=== PATIENT | female | born 1935 | race Caucasian/White ===

== ENCOUNTER 2018-07-22 15:59 | Emergency (ER) | payer MEDICARE, OTHER ==
[2018-07-22] MEDS ORDERED: Adacel (T-DAP) 0.5 ML SYRINGE ONE (17:00)
--- NOTE | 2018-07-22 17:02 | RAD ---
CHEST 2 VIEWS: Date: 07/22/18 HISTORY: Pain, fall. COMPARISON: Chest radiograph from 2016. FINDINGS: There is a faint density projecting over the right upper lobe. This is new from the comparison examin ation. No pneumothorax or effusion. Cardiac silhouette and mediastinal contours within normal limits. IMPRESSION: Nodular density projecting over the right upper lobe. Nonemergent follow-up CT of the chest recommend ed. CODE T. CODE LN. POS: [facility]
--- NOTE | 2018-07-22 17:21 | CT ---
HEAD CT WITHOUT CONTRAST: Date: 07/22/18 HISTORY: Fall, trauma, pain. TECHNIQUE: Axial CT imaging at 5 mm intervals from vertex through skull base without contrast. Coronal and sagit lizet reformatted imaging obtained. FINDINGS: The maxillary sinus, frontal sinus, and anterior ethmoid air cells are completely opacified on the ri ght. There is atherosclerotic calcification of the cavernous carotid arteries. There is no displaced calvarial fracture. There is extensive periventricular, deep, and subcortical white matter hypodensit y, evidence of prominent small vessel disease. No intracranial hemorrhage, midline shift, or mass eff ect. IMPRESSION: Paranasal sinus disease on the right. Extensive small vessel disease. No intracranial hemorrhage or d isplaced calvarial fracture. POS: [facility]
== END 2018-07-22 17:20 | disposition home or self-care (01) ==
LOC: MADERS 15:59
DX: S00.531A Contusion of lip, initial encounter (principal); S50.811A Abrasion of right forearm, initial encounter; Z79.899 Other long term (current) drug therapy; Z79.82 Long term (current) use of aspirin; W19.XXXA Unspecified fall, initial encounter
CPT/HCPCS: 70450; 71046; 90471; 90715

== ENCOUNTER 2018-11-09 11:34 | Emergency (ER) | payer MEDICARE, OTHER ==
[2018-11-09 12:12] LABS: #Basophils 0.1 thou/uL (0.0-0.2); #Eosinphils 0.1 thou/uL (0.0-0.7); #Lymphocytes 1.8 thou/uL (1.20-3.40); #Monocytes 0.6 thou/uL (0.11-0.59); #Neutrophils 8.2 thou/uL (1.40-6.50); %Basophils 0.7 % (0.0-1.0); %Eosinophils 1.1 % (0.0-10.0); %Lymphocytes 16.2 % (21.0-51.0); %Monocytes 5.9 % (0.0-10.0); %Neutrophils 76.1 % (42.0-75.0); Hemoglobin 12.7 g/dL (12.0-16.0); Mean Corpuscular HGB CONC 32.6 g/dL (32.0-36.0); Mean Corpuscular Hemoglobin 29.9 pg (27.0-31.0); Mean Corpuscular Volume 91.8 fL (78.0-98.0); Mean Platelet Volume 5.5 fL (7.4-10.4); Platelet Count 323 thou/uL (130-400); RBC Distribution Width 12.3 % (11.5-14.5); Red Blood Cell (RBC) Count 4.25 mill/uL (4.20-5.40); White Blood Cell (WBC) Count 10.8 thou/uL (4.8-10.8)
[2018-11-09 12:30] LABS: ALT (SGPT) 18 U/L (8-55); AST (SGOT) 12 U/L (5-34); Albumin 4.3 g/dL (3.4-4.8); Alkaline Phosphatase 168 U/L (40-150); Anion Gap 16 mmol/L (10-20); BUN (Urea Nitrogen) 20 mg/dL (9.8-20.1); Bilirubin, Total 0.6 mg/dL (0.2-1.2); Calc. Creatinine Clearance 0 mL/min (70-130); Calcium 9.5 mg/dL (7.8-10.44); Carbon Dioxide 25 mmol/L (23-31); Chloride 91 mmol/L (98-107); Estimated GFR-MDRD 56; Globulin 2.8 g/dL (2.4-3.5); Glucose 109 mg/dL (83-110); Lipase 37 U/L (8-78); Magnesium 1.9 mg/dL (1.6-2.6); Potassium 3.8 mmol/L (3.5-5.1); Protein, Total 7.1 g/dL (6.0-8.3); Sodium 128 mmol/L (136-145)
[2018-11-09] MEDS ORDERED: Ondansetron PF 4 MG/2 ML Vial ONE (12:31)
[2018-11-09] MEDS ORDERED: Sodium Chloride 0.9% 1,000 ML ONE (12:31)
--- NOTE | 2018-11-09 12:46 | RAD ---
CHEST ONE VIEW: Indication: History of epigastric abdominal pain. Comparison: 09-22-17 FINDINGS: There is mild cardiomegaly. Lungs are clear. No pleural effusion is evident. No acute osseous abnorma lity is evident. IMPRESSION: Mild cardiomegaly without evidence of cardiac decompensation. POS: [facility]
--- NOTE | 2018-11-09 13:16 | CT ---
CT OF THE BRAIN WITHOUT CONTRAST: Date: 11/09/18 INDICATION: History of TIA with acute dizziness and nausea. FINDINGS: There is soft tissue contusion involving the left parietal scalp. There is a stable subcutaneous cyst involving the right frontal scalp. There is diffuse cerebral atrophy. There is severe chronic small vessel white matter ischemic change. Septum pellucidum and third ventricle are midline. No definite acute infarct, hemorrhage, or hydroce phalus is present. Mastoid air cells are clear. There is moderate mucosal thickening of the right eth moid air cells and visualized aspects of the right maxillary sinus and right frontal sinus. This is s table to a comparison dated 07/22/18. IMPRESSION: 1. No acute intracranial abnormality. 2. Stable severe chronic small vessel white matter ischemic change. 3. Stable prominent cerebral atrophy. 4. Prominent right-sided paranasal sinus disease. 5. Left parietal scalp contusion. Recommend correlation for any history of fall. POS: [facility]
[2018-11-09 13:58] LABS: Bilirubin Negative (Negative); Blood, Urine Negative (Negative); Clarity Clear (Clear); Glucose, Urine (Dipstick) Negative (Negative); Leukocyte Negative (Negative); Nitrite Positive (Negative); Protein, Urine (Dipstick) Negative (Neg-Trace); Specific Gravity, Urine 1.015 (1.005-1.030); pH, Urine 7.5 (5.0-9.0)
[2018-11-09 14:44] LABS: Bacteria/HPF 4+ HPF (None Seen); RBC/HPF 0-3 HPF (0-3); WBC/HPF 0-3 HPF (0-3)
[2018-11-09] MEDS ORDERED: Nitrofurantoin Monohyd/M-Cryst 100 MG CAP ONE (15:12)
== END 2018-11-09 16:35 | disposition home or self-care (01) ==
LOC: MADERS 11:34
DX: N39.0 Urinary tract infection, site not specified (principal); I10 Essential (primary) hypertension; E87.1 Hypo-osmolality and hyponatremia; R11.0 Nausea; E78.00 Pure hypercholesterolemia, unspecified; G20 Parkinson's disease; F02.80 Dementia in other diseases classified elsewhere, unspecified severity, without behavioral disturbance, psychotic disturbance, mood disturbance, and anxiety; F32.9 Major depressive disorder, single episode, unspecified; G30.9 Alzheimer's disease, unspecified
CPT/HCPCS: 36415; 70450; 71045; 80053; 81003; 81015; 83605; 83690; 83735; 84484; 85025; 93005; 96361; 96374; J2405; J7050